=== PATIENT | female | born 1950 | race Caucasian/White ===

== ENCOUNTER → 2018-01-13 | Outpatient (CLI) | payer MEDICARE, OTHER ==
[~2018-01-13] MED LIST: ACIDOPHILUS LA1 EAC1 PO; ACIPHEX20 MG PO; ADVAIR 250/501 DISK IH; ANTIVERT25 MG PO; ATIVAN1 MG PO; AVAPRO150 MG PO; BENTYL20 MG PO; BENZONATATE100 MG PO; CALTRATE 600 +1 EAC1 PO; CALTRATE 6001 TABLET PO; COLACE100 MG PO; COUMADIN,JANTOVE1 MG PO; CYANOCOBAL1000 MCG/2 IM; CYSTEX TABLET1 EAC1 PO; DICYCLOMINE HCL20 MG PO; EFFEXOR XR75 MG PO; Flonase BOTH NARES; GABAPENTIN100 MG PO; LEVOFLOXACIN750 MG PO; MELATONIN1 MG PO; MICRO-K,K-DUR,10 MEQ PO; MIRALAX, GLYCOL1 PK1 PO; OXYCODONE HCL30 MG PO; OXYCONTIN30 MG PO; OXYCONTIN40 MG PO; OXYCONTIN60 MG PO; PAXIL40 MG PO; PERCOCET 5/31 TABLET PO; PREDNISONE10 MG PO; PREDNISONE5 MG PO; PREMARIN VAGI42.5 GM VG; PROAIR HFA8.5 GM IH; PROSED-DS1 TABLET PO; PROVENTIL,2.5 MG/0.5 IH; Proventil,Ventolin H IH; REMERON15 M2 PO; REVLIMID10 MG PO; SINGULAIR10 MG PO; THERAGRAN1 TABLET PO; TOPAMAX100 MG PO; TOPIRAMATE25 MG PO; Tylenol Regular Stre PO; VITAMIN B12-FO1 EACH PO; ZOLOFT50 M1 PO; ZOMETA4 MG/5 ML IV
== END | disposition home or self-care (01) ==
LOC: CDC 10:08
DX: Z01.810 Encounter for preprocedural cardiovascular examination (principal); M65.342 Trigger finger, left ring finger; M79.642 Pain in left hand; R94.31 Abnormal electrocardiogram [ECG] [EKG]
CPT/HCPCS: 93000